=== PATIENT | female | born 1965 | race American Indian/Alaskan Native ===

== ENCOUNTER 2019-01-19 13:52 | Emergency (ER) | payer BC, OTHER ==
[2019-01-19] MEDS ORDERED: ANTIVERT PO ONE (15:50)
[2019-01-19] MEDS ORDERED: NACL 0.9% 1000 ML 1,000 ML IV ONE (15:50)
[2019-01-19 16:22] LABS: Bilirubin,Urine NEG (Negative); Blood,Urine SM (Negative); Color,Urine Straw (Yellow); Mucus,Urine FEW /HPF; Protein,Urine <15 mg/dL mg/dL (Negative); Urobilinogen,Urine < 2.0 mg/dL (<2.0); WBC,Urine < 1.0 /HPF (0.0-6.0)
[2019-01-19 16:40] LABS: Basophils # (Auto) 0.1 K/mm3 (0.0-0.1); Basophils % (Auto) 0.6 % (0.0-1.8); Eosinophils # (Auto) 0.1 K/mm3 (0.0-0.4); Eosinophils % (Auto) 0.6 % (0.0-4.3); Hematocrit 41.1 % (30.3-42.9); Hemoglobin 13.6 gm/dl (10.1-14.3); Lymphocytes # (Auto) 3.2 K/mm3 (1.2-5.4); Lymphocytes % (Auto) 21.3 % (13.4-35.0); Mean Corpuscular HGB Conc 33 % (30-34); Mean Corpuscular Volume 90 fl (79-97); Monocytes # (Auto) 0.9 K/mm3 (0.0-0.8); Monocytes % (Auto) 6.1 % (0.0-7.3); Platelet Count 352 K/mm3 (140-440); Red Blood Count 4.54 M/mm3 (3.65-5.03); Red Cell Distribution Width 14.4 % (13.2-15.2)
--- NOTE | 2019-01-19 16:51 | Cat Scan Report ---
PROCEDURE: CT HEAD/BRAIN WO CON TECHNIQUE: Computerized tomography of the head was performed without contrast material. CT DOSE LENGTH PRODUCT: 920.5 mGycm HISTORY: dizzine COMPARISONS: None . FINDINGS: Brain: Brain density appears normal. No evidence of intracranial hemorrhage. No parenchymal hemorr josep, mass lesions or mass effect are seen. No abnormal extra-axial fluid collects or masses are see n. Ventricles: Ventricles are normal size and are midline. Bone Windows: No evidence of skull fracture. Paranasal sinuses: Visualized portions are clear.. Mastoid air cells: Clear. IMPRESSION: Negative exam This document is electronically signed by Francois Kumar MD., Jan 19 2019 04:49:33 PM ET
[2019-01-19] MEDS ORDERED: FIORICET PO ONE (16:53)
--- NOTE | 2019-01-19 16:54 | Emergency Department Report ---
ED General Adult HPI - General Chief complaint: Dizziness Stated complaint: WEAKNESS/DIZZINESS Time Seen by Provider: 01/19/19 15:20 Source: patient, EMS Mode of arrival: Stretcher Limitations: No Limitations - History of Present Illness Initial comments: The patient presents to the emergency department with a chief complaint of feeling dizzy and having headaches. Patient states that the room is spinning when she turns her head quickly. Patient states that she's also have muscle cramps over the last couple of days. Upon EMSs arrival the patient's blood pressure was 88/56. The patient has chest pain, shortness of breath,Abdominal pain. Patient also complains of a mild frontal headache that she describes as throbbing in nature and not the worse headache of her life -: Gradual Location: head Radiation: non-radiation Severity scale (0 -10): 2 Improves with: none Worsens with: none Associated Symptoms: denies other symptoms Treatments Prior to Arrival: none - Related Data Home Medications Medication Instructions Recorded Confirmed Last Taken Cyclobenzaprine [Flexeril 10 MG 10 mg PO Q8H PRN 04/01/15 04/01/15 Unknown TAB] [place] 5-325 mg TAB 5 mg PO Q4H PRN 04/01/15 04/01/15 Unknown Previous Rx's Medication Instructions Recorded Last Taken Type HYDROcodone/APAP 5-325 [[place] 1 each PO Q6HR PRN #7 tablet 04/01/15 Unknown Rx 5-325 mg TAB] Labetalol [Labetalol 100mg TAB] 100 mg PO BID #60 tablet 04/01/15 Unknown Rx Lisinopril/Hydrochlorothiazide 1 tab PO QDAY #30 tablet 04/01/15 Unknown Rx [Zestoretic 10-12.5 mg] amLODIPine [Norvasc] 5 mg PO DAILY #30 tab 04/02/15 Unknown Rx Butalb/Acetamin/Caff 50-325-40 1 tab PO Q6HR PRN #24 tab 01/19/19 Unknown Rx [Fioricet] Meclizine [Antivert] 25 mg PO TID PRN #30 tablet 01/19/19 Unknown Rx Allergies Allergy/AdvReac Type Severity Reaction Status Date / Time No Known Allergies Allergy Unverified 01/10/15 21:00 ED Review of Systems ROS: Stated complaint: WEAKNESS/DIZZINESS Other details as noted in HPI Constitutional: denies: chills, fever Eyes: denies: eye pain, eye discharge, vision change ENT: denies: ear pain, throat pain Respiratory: denies: cough, shortness of breath, wheezing Cardiovascular: denies: chest pain, palpitations Endocrine: no symptoms reported Gastrointestinal: denies: abdominal pain, nausea, diarrhea Genitourinary: denies: urgency, dysuria, discharge Musculoskeletal: denies: back pain, joint swelling, arthralgia Skin: denies: rash, lesions Neurological: vertigo. denies: headache, weakness, paresthesias Psychiatric: denies: anxiety, depression Hematological/Lymphatic: denies: easy bleeding, easy bruising ED Past Medical Hx - Past Medical History Hx Hypertension: Yes Additional medical history: Vaginal delivery x 2 - Surgical History Additional Surgical History: , Left finger surgery, tubal ligation - Social History Smoking Status: Current Every Day Smoker Substance Use Type: None - Medications Home Medications: Home Medications Medication Instructions Recorded Confirmed Last Taken Type Cyclobenzaprine [Flexeril 10 MG 10 mg PO Q8H PRN 04/01/15 04/01/15 Unknown History TAB] HYDROcodone/APAP 5-325 [[place] 1 each PO Q6HR PRN #7 tablet 04/01/15 Unknown Rx 5-325 mg TAB] Labetalol [Labetalol 100mg TAB] 100 mg PO BID #60 tablet 04/01/15 Unknown Rx Lisinopril/Hydrochlorothiazide 1 tab PO QDAY #30 tablet 04/01/15 Unknown Rx [Zestoretic 10-12.5 mg] [place] 5-325 mg TAB 5 mg PO Q4H PRN 04/01/15 04/01/15 Unknown History amLODIPine [Norvasc] 5 mg PO DAILY #30 tab 04/02/15 Unknown Rx Butalb/Acetamin/Caff 50-325-40 1 tab PO Q6HR PRN #24 tab 01/19/19 Unknown Rx [Fioricet] Meclizine [Antivert] 25 mg PO TID PRN #30 tablet 01/19/19 Unknown Rx ED Physical Exam - General Limitations: No Limitations General appearance: alert, in no apparent distress - Head Head exam: Present: atraumatic, normocephalic - Eye Eye exam: Present: normal appearance, PERRL, EOMI - ENT ENT exam: Present: mucous membranes dry - Neck Neck exam: Present: normal inspection - Respiratory Respiratory exam: Present: normal lung sounds bilaterally. Absent: respiratory distress, wheezes, rales - Cardiovascular Cardiovascular Exam: Present: regular rate, normal rhythm. Absent: systolic murmur, diastolic murmur, rubs, gallop - GI/Abdominal GI/Abdominal exam: Present: soft, normal bowel sounds. Absent: distended, tenderness - Extremities Exam Extremities exam: Present: normal inspection - Back Exam Back exam: Present: normal inspection - Neurological Exam Neurological exam: Present: alert, oriented X3, CN II-XII intact, other (able to recreate sx with rapid head movement ). Absent: motor sensory deficit - Psychiatric Psychiatric exam: Present: normal affect, normal mood - Skin Skin exam: Present: warm, dry, intact, normal color. Absent: rash ED Course Vital Signs 01/19/19 01/19/19 01/19/19 14:45 15:07 15:18 Temperature 98.1 F Pulse Rate 70 78 Respiratory 16 16 16 Rate Blood Pressure 103/57 125/70 [Left] O2 Sat by Pulse 100 100 98 Oximetry ED Medical Decision Making - Lab Data Result diagrams: 01/19/19 16:16 01/19/19 16:16 Lab Results 01/19/19 01/19/19 01/19/19 Range/Units 16:16 16:16 Unknown WBC 14.8 H (4.5-11.0) K/mm3 RBC 4.54 (3.65-5.03) M/mm3 Hgb 13.6 (10.1-14.3) gm/dl Hct 41.1 (30.3-42.9) % MCV 90 (79-97) fl MCH 30 (28-32) pg MCHC 33 (30-34) % RDW 14.4 (13.2-15.2) % Plt Count 352 (140-440) K/mm3 Lymph % (Auto) 21.3 (13.4-35.0) % [place] % (Auto) 6.1 (0.0-7.3) % Eos % (Auto) 0.6 (0.0-4.3) % Baso % (Auto) 0.6 (0.0-1.8) % Lymph # 3.2 (1.2-5.4) K/mm3 [place] # 0.9 H (0.0-0.8) K/mm3 Eos # 0.1 (0.0-0.4) K/mm3 Baso # 0.1 (0.0-0.1) K/mm3 Seg Neutrophils % 71.4 H (40.0-70.0) % Seg Neutrophils # 10.6 H (1.8-7.7) K/mm3 Sodium 133 L (137-145) mmol/L Potassium 4.2 (3.6-5.0) mmol/L Chloride 101.4 (98-107) mmol/L Carbon Dioxide 18 L (22-30) mmol/L Anion Gap 18 mmol/L BUN 18 H (7-17) mg/dL Creatinine 0.7 (0.7-1.2) mg/dL Estimated GFR > 60 ml/min BUN/Creatinine Ratio 26 % Glucose 83 (65-100) mg/dL Calcium 9.2 (8.4-10.2) mg/dL Total Bilirubin 0.60 (0.1-1.2) mg/dL AST 15 (5-40) units/L ALT 12 (7-56) units/L Alkaline Phosphatase 72 (35-129) units/L Total Protein 6.8 (6.3-8.2) g/dL Albumin 3.6 L (3.9-5) g/dL Albumin/Globulin Ratio 1.1 % Urine Color Straw (Yellow) Urine Turbidity Clear (Clear) Urine pH 6.0 (5.0-7.0) Ur Specific [place] 1.009 (1.003-1.030) Urine Protein <15 mg/dl (Negative) mg/dL Urine Glucose (UA) Neg (Negative) mg/dL Urine Ketones Neg (Negative) mg/dL Urine Blood Sm (Negative) Urine Nitrite Neg (Negative) Urine Bilirubin Neg (Negative) Urine Urobilinogen < 2.0 (<2.0) mg/dL Ur Leukocyte Esterase Neg (Negative) Urine WBC (Auto) < 1.0 (0.0-6.0) /HPF Urine RBC (Auto) 2.0 (0.0-6.0) /HPF U Epithel Cells (Auto) < 1.0 (0-13.0) /HPF Urine Mucus Few /HPF - Radiology Data Radiology results: report reviewed - Medical Decision Making Patient improved with medications Results discussed with the patient and her The patient for his knee that she only drinks 2-3 glasses of water daily but drinks at least twice as much soda Discussed with patient and need to cut back on the consumption of sodas which can dehydration secondary to the caffeine causing diuresis and due to osmolarity secondary to the glucose content Critical care attestation.: If time is entered above; I have spent that time in minutes in the direct care of this critically ill patient, excluding procedure time. ED Disposition Clinical Impression: Vertigo, Dehydration Disposition: TO HOME OR SELFCARE Is pt being admited?: No Does the pt Need Aspirin: No Condition: Fair Instructions: Dehydration (ED), Vertigo (ED) Additional Instructions: return if worse Prescriptions: Meclizine [Antivert] 25 mg PO TID PRN #30 tablet PRN Reason: Vertigo Butalb/Acetamin/Caff 50-325-40 [Fioricet] 1 tab PO Q6HR PRN #24 tab PRN Reason: Headache Referrals: PRIMARY CARE, [Primary Care Provider] - 3-5 Days [facility] [Provider Group] - 3-5 Days [facility] [Provider Group] - 3-5 Days Time of Disposition: 17:58
[2019-01-19 16:56] LABS: Alanine Aminotransferase 12 units/L (7-56); Albumin 3.6 g/dL (3.9-5); BUN/Creatinine Ratio 26; Blood Urea Nitrogen 18 mg/dL (7-17); Calcium 9.2 mg/dL (8.4-10.2); Hemolysis Index 22
[2019-01-19 18:43] VITALS: BP 125/80
== END 2019-01-19 18:43 | disposition home or self-care (01) ==
LOC: ED 13:52
DX: E86.0 Dehydration (principal)
CPT/HCPCS: 36415; 70450; 80053; 81001; 82550; 85025; 96360; 99284; J7030

== ENCOUNTER 2021-04-28 02:32 | Emergency (ER) | payer SELFPAY ==
--- NOTE | 2021-04-28 06:06 | Event Note ---
ED Screening Note Date of service: 04/28/21 Time: 06:04 ED Screening Note: 55-year-old female patient with history of hypertension presents to the emergency department via EMS with complaints of lightheadedness and nausea starting approximately 5 hours ago. Patient states she feels as though she may pass out. Patient tested positive for COVID-19 approximately 10 days ago after receiving the first dose of her vaccination series. Two days ago, she was evaluated at another local emergency department and diagnosed with Kaur's palsy. She takes Losartan for blood pressure. There have been no recent changes to the dosing or frequency of her medication. General: Awake, appropriately interactive, no acute distress. Neck: Supple. Full range of motion intact. Cardiovascular: Normal peripheral perfusion. Pulmonary: No respiratory distress. Patient is speaking normally without use of accessory muscles. Skin: No apparent rashes or lesions. Neurological: No facial asymmetry. Speech is clear. Follows commands. Patient is alert and oriented. Musculoskeletal: Moves all four extremities spontaneously with normal range of motion. Psych: Cooperative. Appropriate mood and affect. Ordered EKG, labs, urinalysis, chest x-ray. Peripheral IV access requested. I have greeted and performed a focused rapid initial assessment of this patient. A comprehensive ED assessment and evaluation of the patient, analysis of all test results, and completion of the medical decision-making process will be conducted by additional ED providers. This initial assessment/diagnostic orders/clinical plan/treatment(s) is/are subject to change based on patients health status, clinical progression and re-assessment. Further treatment and workup at subsequent clinical provider's discretion. Patient/guardian urged not to elope from the ED as their condition may be serious if not clinically assessed and managed.
[2021-04-28] MEDS ORDERED: ONDANSETRON 4 MG ODT TAB PO ONE (06:45)
--- NOTE | 2021-04-28 06:50 | Emergency Department Report ---
HPI - General Chief Complaint: Weakness Time Seen by Provider: 04/28/21 06:30 - HPI HPI: This is a 55-year-old -[place] female presents to the emergency department via EMS from home with a complaint of some generalized weakness, lightheadedness, nausea without vomiting, hypotension that has been going on over the past 24 hours. Patient was found to be positive for COVID-19 about 10 days ago, which occurred about 1 week after receiving her first Covid vaccination. A week ago the patient developed a right-sided Kaur's palsy. She says that she went to a [facility] emergency department about 3 days ago for some similar complaint of lightheadedness/dizziness, as well as the Kaur's palsy symptoms, uncontrolled hypertension, because "they wanted to make sure I did not have a stroke." Patient says that she had a full emergency department aimee luation including a negative CT scan of the head at that time. The patient has been drinking water but has a decreased appetite. She has a past medical history of hypertension, but says that this morning she checked her blood pressure and it was low, so she called EMS. She denies any headache, vision change, chest pain, shortness of breath. ED Past Medical Hx - Past Medical History Hx Hypertension: Yes Additional medical history: Vaginal delivery x 2 - Surgical History Additional Surgical History: , Left finger surgery, tubal ligation - Social History Smoking Status: Current Every Day Smoker Substance Use Type: None - Medications Home Medications: Home Medications Medication Instructions Recorded Confirmed Last Taken Type Cyclobenzaprine [Flexeril 10 MG 10 mg PO Q8H PRN 04/01/15 04/01/15 Unknown History TAB] HYDROcodone/APAP 5-325 [[place] 1 each PO Q6HR PRN #7 tablet 04/01/15 Unknown Rx 5-325 mg TAB] Lisinopril/Hydrochlorothiazide 1 tab PO QDAY #30 tablet 04/01/15 Unknown Rx [Zestoretic 10-12.5 mg] [place] 5-325 mg TAB 5 mg PO Q4H PRN 04/01/15 04/01/15 Unknown History labetaloL [Labetalol 100mg TAB] 100 mg PO BID #60 tablet 04/01/15 Unknown Rx amLODIPine [Norvasc] 5 mg PO DAILY #30 tab 04/02/15 Unknown Rx Butalb/Acetamin/Caff 50-325-40 1 tab PO Q6HR PRN #24 tab 01/19/19 Unknown Rx [Fioricet] Meclizine [Antivert] 25 mg PO TID PRN #30 tablet 01/19/19 Unknown Rx Amoxicillin/Potassium Clav 1 each PO BID #14 tablet 04/28/21 Unknown Rx [Augmentin 875-125 Tablet] Ondansetron [Zofran Odt] 4 mg PO Q8HR PRN #12 tab.rapdis 04/28/21 Unknown Rx ED Review of Systems ROS: Stated complaint: GEN WEAKNESS Other details as noted in HPI Comment: All other systems reviewed and negative Constitutional: weakness. denies: chills, fever Eyes: denies: eye pain, vision change ENT: denies: ear pain, throat pain Respiratory: denies: cough, shortness of breath Cardiovascular: denies: chest pain, palpitations Gastrointestinal: nausea. denies: abdominal pain, vomiting Genitourinary: dysuria. denies: discharge Musculoskeletal: denies: back pain, arthralgia Skin: denies: rash, lesions Neurological: denies: numbness, paresthesias Physical Exam - Physical Exam Vital Signs: Vital Signs 04/28/21 04:19 Pulse Rate 71 Respiratory 18 Rate Blood Pressure 141/85 O2 Sat by Pulse 96 Oximetry Physical Exam: GENERAL: The patient is well-developed well-nourished. HENT: Normocephalic. Atraumatic. Patient has moist mucous membranes. EYES: Extraocular motions are intact. Pupils equal reactive to light bilaterally. NECK: Supple. Trachea is midline. CHEST/LUNGS: Clear to auscultation. No tachypnea or accessory muscle use. There is no respiratory distress noted. HEART/CARDIOVASCULAR: Regular. There is no tachycardia. There is no murmur. ABDOMEN: Abdomen is soft, nontender. Patient has normal bowel sounds. There is no abdominal distention. SKIN: Skin is warm and dry. NEURO: The patient is awake, alert, and oriented. The patient is cooperative. There is right-sided facial paresis, especially at the nasolabial fold and right forehead, although the patient is able to close her right eyelid. Normal speech. MUSCULOSKELETAL: There is no tenderness or deformity. There is no limitation range of motion. ED Course Vital Signs 04/28/21 04:19 Pulse Rate 71 Respiratory 18 Rate Blood Pressure 141/85 O2 Sat by Pulse 96 Oximetry ED Medical Decision Making - Lab Data Result diagrams: 04/28/21 07:13 04/28/21 07:13 Lab Results 04/28/21 04/28/21 04/28/21 Range/Units 07:13 07:13 07:13 WBC 8.7 (4.5-11.0) K/mm3 RBC 5.01 (3.65-5.03) M/mm3 Hgb 15.0 H (10.1-14.3) gm/dl Hct 44.6 H (30.3-42.9) % MCV 89 (79-97) fl MCH 30 (28-32) pg MCHC 34 (30-34) % RDW 13.9 (13.2-15.2) % Plt Count 367 (140-440) K/mm3 Lymph % (Auto) 27.7 (13.4-35.0) % [place] % (Auto) 10.5 H (0.0-7.3) % Eos % (Auto) 0.3 (0.0-4.3) % Baso % (Auto) 1.6 (0.0-1.8) % Lymph # (Auto) 2.4 (1.2-5.4) K/mm3 [place] # (Auto) 0.9 H (0.0-0.8) K/mm3 Eos # (Auto) 0.0 (0.0-0.4) K/mm3 Baso # (Auto) 0.1 (0.0-0.1) K/mm3 Seg Neutrophils % 59.9 (40.0-70.0) % Seg Neutrophils # 5.2 (1.8-7.7) K/mm3 Sodium 135 L (137-145) mmol/L Potassium 3.6 (3.6-5.0) mmol/L Chloride 98.3 (98-107) mmol/L Carbon Dioxide 25 (22-30) mmol/L Anion Gap 15 mmol/L BUN 12 (7-17) mg/dL Creatinine 0.7 (0.6-1.2) mg/dL Estimated GFR > 60 ml/min BUN/Creatinine Ratio 17 % Glucose 116 H (65-100) mg/dL Calcium 9.5 (8.4-10.2) mg/dL Magnesium 2.60 H (1.7-2.3) mg/dL Total Bilirubin 0.50 (0.1-1.2) mg/dL AST 22 (5-40) units/L ALT 18 (7-56) units/L Alkaline Phosphatase 100 (35-129) units/L Troponin T < 0.010 (0.00-0.029) ng/mL Total Protein 8.1 (6.3-8.2) g/dL Albumin 4.0 (3.9-5) g/dL Albumin/Globulin Ratio 1.0 % Urine Color (Yellow) Urine Turbidity (Clear) Urine pH (5.0-7.0) Ur Specific [place] (1.003-1.030) Urine Protein (Negative) mg/dL Urine Glucose (UA) (Negative) mg/dL Urine Ketones (Negative) mg/dL Urine Blood (Negative) Urine Nitrite (Negative) Urine Bilirubin (Negative) Urine Urobilinogen (<2.0) mg/dL Ur Leukocyte Esterase (Negative) Urine WBC (Auto) (0.0-6.0) /HPF Urine RBC (Auto) (0.0-6.0) /HPF U Epithel Cells (Auto) (0-13.0) /HPF Acetaminophen 5.0 L (10.0-30.0) ug/mL 04/28/21 Range/Units 08:26 WBC (4.5-11.0) K/mm3 RBC (3.65-5.03) M/mm3 Hgb (10.1-14.3) gm/dl Hct (30.3-42.9) % MCV (79-97) fl MCH (28-32) pg MCHC (30-34) % RDW (13.2-15.2) % Plt Count (140-440) K/mm3 Lymph % (Auto) (13.4-35.0) % [place] % (Auto) (0.0-7.3) % Eos % (Auto) (0.0-4.3) % Baso % (Auto) (0.0-1.8) % Lymph # (Auto) (1.2-5.4) K/mm3 [place] # (Auto) (0.0-0.8) K/mm3 Eos # (Auto) (0.0-0.4) K/mm3 Baso # (Auto) (0.0-0.1) K/mm3 Seg Neutrophils % (40.0-70.0) % Seg Neutrophils # (1.8-7.7) K/mm3 Sodium (137-145) mmol/L Potassium (3.6-5.0) mmol/L Chloride (98-107) mmol/L Carbon Dioxide (22-30) mmol/L Anion Gap mmol/L BUN (7-17) mg/dL Creatinine (0.6-1.2) mg/dL Estimated GFR ml/min BUN/Creatinine Ratio % Glucose (65-100) mg/dL Calcium (8.4-10.2) mg/dL Magnesium (1.7-2.3) mg/dL Total Bilirubin (0.1-1.2) mg/dL AST (5-40) units/L ALT (7-56) units/L Alkaline Phosphatase (35-129) units/L Troponin T (0.00-0.029) ng/mL Total Protein (6.3-8.2) g/dL Albumin (3.9-5) g/dL Albumin/Globulin Ratio % Urine Color Straw (Yellow) Urine Turbidity Clear (Clear) Urine pH 6.0 (5.0-7.0) Ur Specific [place] 1.004 (1.003-1.030) Urine Protein <15 mg/dl (Negative) mg/dL Urine Glucose (UA) Neg (Negative) mg/dL Urine Ketones Neg (Negative) mg/dL Urine Blood Sm (Negative) Urine Nitrite Neg (Negative) Urine Bilirubin Neg (Negative) Urine Urobilinogen < 2.0 (<2.0) mg/dL Ur Leukocyte Esterase Neg (Negative) Urine WBC (Auto) 1.0 (0.0-6.0) /HPF Urine RBC (Auto) 1.0 (0.0-6.0) /HPF U Epithel Cells (Auto) 1.0 (0-13.0) /HPF Acetaminophen (10.0-30.0) ug/mL - EKG Data -: EKG Interpreted by [place] EKG shows normal: sinus rhythm, axis, intervals, QRS complexes, ST-T waves Rate: bradycardia (59 bpm) - EKG Data When compared to previous EKG there are: previous EKG unavailable Interpretation: normal EKG - Radiology Data Radiology results: report reviewed CHEST 1 VIEW INDICATION: COVID. COMPARISON: None. FINDINGS: Support devices: None. Heart: Normal. Lungs/Pleura: Mild patchy bibasilar opacities are noted. No pleural abnormality. IMPRESSION: 1. Mild bibasilar pneumonia. - Medical Decision Making This patient presents to the emergency department with a complaint of some lightheadedness/dizziness, generalized weakness, nausea without vomiting, over the past 2 days, as well as one episode of hypotension this morning in which she had a systolic blood pressure of about 60. The patient was found to be positive for COVID-19 about 10 days ago. On examination the patient appears as if she does not feel well, but otherwise does not appear in any respiratory or acute distress. Heart and lung sounds are normal to auscultation. Chest x-ray was read by radiology as showing mild bibasilar opacities concerning for pneumonia. Patient's labs have otherwise been unremarkable including CBC, metabolic panel, negative troponin, and a normal urinalysis. Vital signs have been reassuring throughout her ED course including being afebrile and no hypoxia. The patient has not had any hypotension over the almost 8 hours she has been in the emergency department. Negative orthostatics. For all these reasons patient appears safe for discharge home at this time. She has been placed on antibiotics secondary to the mild bibasilar opacities. We discussed keeping a blood pressure log including multiple readings at different points throughout the day. She has been instructed to follow-up with primary care. She will return to the emergency department with any worsening of her symptoms or with any acute distress. Critical Care Time: No Critical care attestation.: If time is entered above; I have spent that time in minutes in the direct care of this critically ill patient, excluding procedure time. ED Disposition Clinical Impression: COVID-19, Generalized weakness Pneumonia Qualifiers: Pneumonia type: due to unspecified organism Laterality: bilateral Lung location: lower lobe of lung Qualified Code(s): J18.9 - Pneumonia, unspecified organism Disposition: 01 HOME / SELF CARE / HOMELESS Is pt being admited?: No Condition: Stable Instructions: COVID-19, Fatigue, Community-Acquired Pneumonia, Adult, Bacterial Pneumonia (ED) Additional Instructions: Please follow-up with your primary care physician in the next few days. Take all medications as prescribed. Keep a blood pressure log. Call 911 or EMS immediately with any persistent low blood pressure. Return to the emergency department with any worsening of your symptoms, new or concerning symptoms not addressed during this current emergency department visit, or with any acute distress. Prescriptions: Amoxicillin/Potassium Clav [Augmentin 875-125 Tablet] 1 each PO BID #14 tablet Ondansetron [Zofran Odt] 4 mg PO Q8HR PRN #12 tab.rapdis PRN Reason: Nausea Referrals: PRIMARY CARE,MD [Primary Care Provider] - 3-5 Days
--- NOTE | 2021-04-28 07:09 | XRay Report ---
CHEST 1 VIEW INDICATION: COVID. COMPARISON: None. FINDINGS: Support devices: None. Heart: Normal. Lungs/Pleura: Mild patchy bibasilar opacities are noted. No pleural abnormality. IMPRESSION: 1. Mild bibasilar pneumonia. Signer Name: Harsh Velasco MD Signed: 04/28/2021 7:04 AM Workstation Name: [id number]
[2021-04-28 07:25] LABS: Basophils # (Auto) 0.1 K/mm3 (0.0-0.1); Basophils % (Auto) 1.6 % (0.0-1.8); Eosinophils % (Auto) 0.3 % (0.0-4.3); Hematocrit 44.6 % (30.3-42.9); Lymphocytes # (Auto) 2.4 K/mm3 (1.2-5.4); Lymphocytes % (Auto) 27.7 % (13.4-35.0); Mean Corpuscular HGB Conc 34 % (30-34); Mean Corpuscular Volume 89 fl (79-97); Monocytes # (Auto) 0.9 K/mm3 (0.0-0.8); Monocytes % (Auto) 10.5 % (0.0-7.3); Platelet Count 367 K/mm3 (140-440); Red Blood Count 5.01 M/mm3 (3.65-5.03); Red Cell Distribution Width 13.9 % (13.2-15.2)
[2021-04-28 07:50] LABS: Alanine Aminotransferase 18 units/L (7-56); Blood Urea Nitrogen 12 mg/dL (7-17); Calcium 9.5 mg/dL (8.4-10.2); Hemolysis Index 11
[2021-04-28 08:13] LABS: BUN/Creatinine Ratio 17
[2021-04-28 08:41] LABS: Bilirubin,Urine NEG (Negative); Blood,Urine SM (Negative); Color,Urine Straw (Yellow); Protein,Urine <15 mg/dL mg/dL (Negative); Urobilinogen,Urine < 2.0 mg/dL (<2.0)
[2021-04-28] MEDS ORDERED: ACETAMINOPHEN 325 MG TAB PO ONE (09:51)
[2021-04-28 10:19] VITALS: BP 108/72
--- NOTE | 2021-04-29 14:24 | Electrocardiograph Report ---
[facility] Test Date: 2021-04-28 Test Time: 06:03:44 Pat Name: JESU POLLOCK Department: Room: Gender: F Tipple Operator: TAYLOR : 1965 Requested By: CYNTHIA JOSÉ Order Number: [id number] Reading MD: Corbin Landaverde Measurements Intervals [place] Rate: 59 P: 48 NE: 144 QRS: 43 QRSD: 92 T: 52 QT: 436 QTc: 434 Interpretive Statements Sinus bradycardia Consider left ventricular hypertrophy No previous ECG available for comparison Electronically Signed On 04-29-2021 14:24:26 EDT by Corbin Landaverde
== END 2021-04-28 10:50 | disposition home or self-care (01) ==
LOC: ED 02:32
DX: U07.1 COVID-19 (principal); J12.82 Pneumonia due to coronavirus disease 2019; R53.1 Weakness; I10 Essential (primary) hypertension; F17.200 Nicotine dependence, unspecified, uncomplicated; Z79.899 Other long term (current) drug therapy; Z98.890 Other specified postprocedural states; Z98.51 Tubal ligation status
CPT/HCPCS: 36415; 71045; 80053; 80320; 81001; 83735; 84484; 85025; 93005; G0480